=== PATIENT | male | born 1980 ===

== ENCOUNTER 2024-03-01 13:24 | Emergency (ER) | payer OTHER, MEDICAID, SELFPAY ==
[2024-03-01 13:47] VITALS: BP 132/83; PULSE 89; RESP 16; TEMP 37.1; O2SAT 98; BMI 31.1
--- NOTE | 2024-03-02 04:27 | ED.NECK ---
HPI - Neck Pain/Injury General Chief Complaint: Neck Pain/Injury Stated Complaint: dislocated R knee 02/22, tonsil burst, ABD ulcer Mode of arrival: Ambulatory History of Present Illness HPI Narrative: Patient left without seeing provider Related Data Allergies Allergy/AdvReac Type Severity Reaction Status Date / Time acetaminophen [From Tylenol] Allergy Verified 03/01/24 13:46 cephalexin Allergy Verified 03/01/24 13:46 ibuprofen Allergy Verified 03/01/24 13:46 Opioids - Morphine Analogues Allergy Anaphylaxis Verified 03/01/24 13:46 Sulfa (Sulfonamide Allergy Anaphylaxis Verified 03/01/24 13:46 Antibiotics) Patient History Social History Smoking Status: Former smoker Smoking Status: Former smoker Substance Use Type: marijuana Exam Initial Vital Signs Initial Vital Signs: Vital Signs Temperature 98.8 F 03/01/24 13:47 Pulse Rate 89 03/01/24 13:47 Respiratory Rate 16 03/01/24 13:47 Blood Pressure 132/83 03/01/24 13:47 Pulse Oximetry 98 03/01/24 13:47 Oxygen Delivery Method Room Air 03/01/24 13:47 Discharge Plan Departure Patient Disposition: Left Without Being Seen Clinical Impression: Patient left without being seen
== END 2024-03-01 19:58 | disposition left against medical advice (07) ==
PROVIDERS: Emergency Provider Emergency Medicine
CPT/HCPCS: 99281